=== PATIENT | male | born 1980 | race Caucasian/White ===

== ENCOUNTER 2020-05-29 12:10 | Emergency (ER) | payer OTHER ==
--- NOTE | 2020-05-30 17:32 | EKG ---
[facility] [address] [facility] [place], [place] [address] Signed Normal sinus rhythm Right atrial enlargement Borderline ECG No previous ECGs available Confirmed by HUSSAIN ZARATE MD ([id number] on 05/30/2020 5:32:21 PM Electronically Signed By: HUSSAIN ZARATE MD 05/30/20 173 PATIENT NAME: RAÚL ABAD Electrocardiogram DATE OF : 80 PHYSICIAN: HUSSAIN ZARATE MD REPORT #: [id number] REPORT IS CONFIDENTIAL AND NOT TO BE RELEASED WITHOUT AUTHORIZATION
== END 2020-05-29 13:01 | disposition home or self-care (01) ==
LOC: ED 12:10
DX: I47.1 Supraventricular tachycardia (principal); F17.200 Nicotine dependence, unspecified, uncomplicated; Z79.899 Other long term (current) drug therapy; Z80.0 Family history of malignant neoplasm of digestive organs
CPT/HCPCS: 93005; 93010; 99285-25